=== PATIENT | female | born 1965 | race Caucasian/White ===

== ENCOUNTER 2023-04-07 15:05 | Outpatient (OUT) | payer OTHER, SELFPAY ==
--- NOTE | 2023-04-07 15:13 | CA_ITS ---
[facility] Test Date: 2023-04-27 Pat Name: Heather Ruby Department: Room: - Gender: Female Geriatric Physical Therapist: : [id number] Requested By: [id number] Order Number: [id number] Reading MD: DIANA LLAMAS Interpretive Statements Predominant rhythm is sinus with average rate of 77 bpm Tachycardia - max rate of 172 bpm, associated with PSVT w/ 6 beat duration - 18 episodes of PSVT w/ longest duration of 13 beats - longest episode of 34min 6sec with rates between 106-114 bpm Bradycardia - min rate of 42 bpm, occurring during sleep - longest episode of 46min 35sec with rates between 48-54 bpm Ventricular ectopy - 28 PVC Patient triggered events: 7 - associated with no symptoms - associated with NSR Impression: Predominant rhythm is sinus with average rate of 77 bpm Fastest rate of 172 bpm and slowest rate of 42 bpm 28 PVC No atrial fibrillation No blocks or pauses Electronically Signed On 04-29-2023 7:07:31 EST by DIANA LLAMAS
== END 2023-04-07 15:06 | disposition home or self-care (01) ==
PROVIDERS: PCP Internal Medicine; Visit Provider Physician Assistant
DX: R00.0 Tachycardia, unspecified (principal); I10 Essential (primary) hypertension
CPT/HCPCS: 93246

== ENCOUNTER 2023-05-08 08:21 | Outpatient (OUT) | payer OTHER, SELFPAY ==
--- NOTE | 2023-05-08 08:23 | MM_ITS ---
Patient Name: BALTAZAR CA MR#: [id number] : 1965 Exam Date: 05/08/2023 Ordering Doctor: DR ARACELIS BAILEY RADIOLOGY REPORT PROCEDURE: MM TOMOSYNTHESIS SCREENING BI COMPARISON: MG MAMM SCREEN 3D TANA CAD, 05/07/2022. MG MAMM SCREEN 3D TANA CAD, 05/02/2021. MG MAMM SCREEN TANA W CAD, 04/24/2020. MG MAMM TANA DIAG W CAD DIG, 08/07/2014. INDICATIONS: Screening Calculator Name NCI Breast Cancer Risk Assessment Tool 5 Year Breast Cancer Risk 1.10% Lifetime Breast Cancer Risk 6.60% Personal Breast Cancer No Personal Ovarian Cancer No Treatments None Family Cancers Father with prostate cancer at age 60. LOCATION: [facility] BREAST COMPOSITION: Heterogeneously dense,which may obscure small masses. FINDINGS: DIAGNOSTIC CATEGORY 2--BENIGN FINDING: RIGHT BREAST: No significant suspicious finding. Scattered benign-appearing lymph nodes are present. Scattered benign-appearing nodules are present. No significant change has occurred. LEFT BREAST: No significant suspicious finding. Scattered benign-appearing lymph nodes are present. Scattered benign-appearing nodules are present. No significant change has occurred. RECOMMENDATIONS: ROUTINE MAMMOGRAM AND CLINICAL EVALUATION IN 12 MONTHS. PLEASE NOTE: A NORMAL MAMMOGRAM DOES NOT EXCLUDE THE POSSIBILITY OF BREAST CANCER. A CLINICALLY SUSPICIOUS PALPABLE LUMP SHOULD BE BIOPSIED. Dictated by: Harsh Le M.D. on 05/12/2023 at 13:58 Approved by: Harsh Le M.D. on 05/12/2023 at 14:22
== END 2023-05-08 08:22 | disposition home or self-care (01) ==
LOC: MAMMO 08:21
PROVIDERS: PCP Internal Medicine; Visit Provider Physician Assistant
DX: Z12.31 Encounter for screening mammogram for malignant neoplasm of breast (principal); Z80.42 Family history of malignant neoplasm of prostate
CPT/HCPCS: 77063; 77067